=== PATIENT | male | born 1950 | race Caucasian/White ===

== ENCOUNTER 2017-07-14 15:02 | Inpatient (IN) ==
[2017-07-14] MEDS ORDERED: SODIUM CHLORIDE 0.9% 1,000 ML IV STA (15:05)
[2017-07-14] MEDS ORDERED: ONDANSETRON 4 MG/2 ML VIAL IV PRN (15:05)
[2017-07-14] MEDS ORDERED: ASPIRIN 325 MG TABLET PO STA (15:05)
[2017-07-14] MEDS ORDERED: LORazepam 2 MG/1 ML VIAL IV STA (15:18)
[2017-07-14 16:00] LABS: Basophils # 0.1 10*3/uL (0.0-0.2); Basophils % 0.7 % (0.0-0.8); Eosinophils % 0.5 % (0.00-10.9); Hematocrit 48.3 VOL% (42.0-52.0); Hemoglobin 16.2 GM/DL (14.0-18.0); Immature Granulocytes % 0.5 %; Immature Granulocytes Absolute 0.04 #; Lymphocytes # 0.9 10*3/uL (1.4-4.0); Lymphocytes % 9.6 % (21.2-54.2); Mean Corpuscular HGB Conc 33.5 GM/DL (32-36); Mean Corpuscular Hemoglobin 30 PG (27-34); Mean Corpuscular Volume 90.6 FL (87-102); Mean Platelet Volume 10.7 FL (9.6-12.0); Monocytes # 0.5 10*3/uL (0.11-0.8); Monocytes % 5.3 % (1.7-12.7); Neutrophils # 7.4 10*3/uL (1.4-7.4); Neutrophils % 83.4 % (38.7-73.9); Platelet Count 267 T/CUMM (130-400); Red Blood Count 5.33 MC/CUMM (3.8-5.5); Red Cell Distribution Width 12.9 % (9.3-17.3); White Blood Count 8.9 T/CUMM (4-12)
[2017-07-14] MEDS ORDERED: LORazepam 2 MG/1 ML VIAL ONE (16:01)
[2017-07-14] MEDS ORDERED: ASPIRIN 325 MG TABLET ONE (16:01)
[2017-07-14 16:09] LABS: INR 1.1; PT Patient Result 11.8 SECS; Partial Thromboplastin Time 25.9 SECS (0-40)
[2017-07-14 16:31] LABS: Alanine Aminotransferase 22 U/L (16-61); Albumin 3.7 G/DL (3.4-5.0); Alkaline Phosphatase 105 U/L (45-117); Aspartate Amino Transferase 10 U/L (0-37); Blood Urea Nitrogen 29 MG/DL (7-18); Calcium 9.8 MG/DL (8.5-10.1); Glucose 140 MG/DL (74-106); Osmolality,Calculated 280.8 MOS/KG (273-304); Sodium 137 MMOL/L (136-145); Total Protein 7.3 G/DL (6.4-8.3)
[2017-07-14] MEDS ORDERED: LORazepam 2 MG/1 ML VIAL IV PRN ×2 (20:30→20:46)
[2017-07-14] MEDS ORDERED: GLUCAGON 1 MG VIAL IM PRN (20:38)
[2017-07-14] MEDS ORDERED: DEXTROSE 50% 25 GM/50 ML VIAL IV PRN (20:38)
[2017-07-14] MEDS: SODIUM CHLORIDE 0.9% 1,000 ML IV SCH (21:36)
[2017-07-14] MEDS: PANTOPRAZOLE 40 MG VIAL IV SCH (21:41)
[2017-07-14 21:44] LABS: Basophils % 0.6 % (0.0-0.8); Eosinophils # 0.1 10*3/uL (0.0-0.87); Eosinophils % 2.1 % (0.00-10.9); Hematocrit 45.9 VOL% (42.0-52.0); Hemoglobin 15.5 GM/DL (14.0-18.0); Immature Granulocytes % 0.1 %; Immature Granulocytes Absolute 0.01 #; Lymphocytes # 1.2 10*3/uL (1.4-4.0); Lymphocytes % 17.7 % (21.2-54.2); Mean Corpuscular HGB Conc 33.8 GM/DL (32-36); Mean Corpuscular Hemoglobin 31 PG (27-34); Mean Corpuscular Volume 90.4 FL (87-102); Mean Platelet Volume 10.7 FL (9.6-12.0); Monocytes # 0.6 10*3/uL (0.11-0.8); Monocytes % 8.7 % (1.7-12.7); Neutrophils # 4.7 10*3/uL (1.4-7.4); Neutrophils % 70.8 % (38.7-73.9); Platelet Count 244 T/CUMM (130-400); Red Blood Count 5.08 MC/CUMM (3.8-5.5); White Blood Count 6.7 T/CUMM (4-12)
[2017-07-14] MEDS: DEXAMETHASONE 4 MG/1 ML VIAL IV SCH (21:46)
[2017-07-14] MEDS: INSULIN LISPRO 100 UNIT/ML SUBCUT SCH (21:48)
[2017-07-14 22:02] LABS: Calcium 8.8 MG/DL (8.5-10.1); Osmolality,Calculated 279.7 MOS/KG (273-304); Potassium 4.4 MMOL/L (3.5-5.1)
[2017-07-15] MEDS ORDERED: CYCLOBENZAPRINE 10 MG TABLET PO ONE (01:18)
[2017-07-15] MEDS: DEXAMETHASONE 4 MG/1 ML VIAL IV SCH ×4 (03:29→20:40)
[2017-07-15] MEDS: SODIUM CHLORIDE 0.9% 1,000 ML IV SCH ×2 (06:01→20:43)
[2017-07-15] MEDS: NICOTINE 21 MG/24 HR PATCH TRANSDERM SCH (09:28)
[2017-07-15] MEDS: PANTOPRAZOLE 40 MG VIAL IV SCH ×2 (09:30→20:37)
[2017-07-15] MEDS: INSULIN LISPRO 100 UNIT/ML SUBCUT SCH ×4 (09:32→20:36)
[2017-07-15 17:04] LABS: Apearance,Urine CLEAR (Clear); Bilirubin,Urine Negative (Negative); Blood, Urine Moderate mg/dL (Negative); Glucose,Urine (UA) Negative (Negative); Ketones,Urine Negative (Negative); Mucus,Urine Occasional /LPF (Occasional); Nitrite,Urine Negative (Negative); Protein,Urine Negative; RBC,Urine 41 /HPF (0-4); Squamous Epithelial Cell,Urine Occasional /HPF (0-10); Urine Color Yellow (Yellow); Urine Specific Gravity 1.042 (1.001-1.035); Urine Urobilinogen < 2.0 EU/DL (0.2-1.0); WBC,Urine 5 /HPF (0-6)
[2017-07-16] MEDS: DEXAMETHASONE 4 MG/1 ML VIAL IV SCH ×2 (02:33→09:50)
[2017-07-16 06:47] LABS: Calcium 8.4 MG/DL (8.5-10.1); Osmolality,Calculated 283.4 MOS/KG (273-304)
[2017-07-16] MEDS: INSULIN LISPRO 100 UNIT/ML SUBCUT SCH ×4 (08:08→20:42)
[2017-07-16] MEDS: PANTOPRAZOLE 40 MG VIAL IV SCH (09:50)
[2017-07-16] MEDS: NICOTINE 21 MG/24 HR PATCH TRANSDERM SCH (09:55)
[2017-07-16] MEDS: DEXAMETHASONE 4 MG TABLET PO SCH ×2 (16:15→20:41)
[2017-07-17] MEDS: INSULIN LISPRO 100 UNIT/ML SUBCUT SCH ×4 (07:20→22:17)
[2017-07-17] MEDS: DEXAMETHASONE 4 MG TABLET PO SCH ×3 (11:17→20:24)
[2017-07-17] MEDS: PANTOPRAZOLE 40 MG TABLET PO SCH (11:17)
[2017-07-17] MEDS: NICOTINE 21 MG/24 HR PATCH TRANSDERM SCH (11:18)
[2017-07-18] MEDS: INSULIN LISPRO 100 UNIT/ML SUBCUT SCH (07:50)
[2017-07-18] MEDS: PANTOPRAZOLE 40 MG TABLET PO SCH (08:41)
[2017-07-18] MEDS: DEXAMETHASONE 4 MG TABLET PO SCH ×4 (08:41→23:17)
[2017-07-18] MEDS: NICOTINE 21 MG/24 HR PATCH TRANSDERM SCH (08:42)
[2017-07-18] MEDS: ALBUTEROL/IPRATROPIUM 3 ML NEB RESP TX PRN (16:25)
[2017-07-19 05:22] LABS: Basophils % 0.1 % (0.0-0.8); Hematocrit 38.7 VOL% (42.0-52.0); Hemoglobin 13.9 GM/DL (14.0-18.0); Immature Granulocytes % 0.6 %; Immature Granulocytes Absolute 0.05 #; Lymphocytes # 0.5 10*3/uL (1.4-4.0); Lymphocytes % 6.2 % (21.2-54.2); Mean Corpuscular HGB Conc 35.9 GM/DL (32-36); Mean Corpuscular Hemoglobin 31 PG (27-34); Mean Corpuscular Volume 87.6 FL (87-102); Mean Platelet Volume 11.2 FL (9.6-12.0); Monocytes # 0.2 10*3/uL (0.11-0.8); Neutrophils # 7.3 10*3/uL (1.4-7.4); Neutrophils % 90.1 % (38.7-73.9); Platelet Count 252 T/CUMM (130-400); Red Blood Count 4.42 MC/CUMM (3.8-5.5); White Blood Count 8.1 T/CUMM (4-12)
[2017-07-19 05:57] LABS: Calcium 8.5 MG/DL (8.5-10.1); Osmolality,Calculated 286.3 MOS/KG (273-304); Potassium 4.1 MMOL/L (3.5-5.1)
[2017-07-19] MEDS: NICOTINE 21 MG/24 HR PATCH TRANSDERM SCH (09:21)
[2017-07-19] MEDS: DEXAMETHASONE 4 MG TABLET PO SCH (09:21)
[2017-07-19] MEDS: PANTOPRAZOLE 40 MG TABLET PO SCH (09:21)
[2017-07-19] MEDS: ALBUTEROL/IPRATROPIUM 3 ML NEB RESP TX PRN (09:40)
[2017-07-19] MEDS ORDERED: TUBERCULIN SKIN TEST 0.1 ML SYRINGE INTRADERM ONE (10:30)
[2017-07-19 14:28] VITALS: BP 116/77
== END 2017-07-19 15:07 | disposition swing bed (61) | DRG 54 ==
LOC: EDBD → EDUNIT# → N.ED 15:02 → SUATTDRO 20:27 → N.EDINP 21:06 → N.4E 21:11
PROVIDERS: ADMIT Internal Medicine; ATTEND Internal Medicine

== ENCOUNTER 2017-11-06 19:20 | Inpatient (IN) ==
[2017-11-06] MEDS ORDERED: SODIUM CHLORIDE 0.9% 1,000 ML IV STA (22:58)
[2017-11-07 00:46] LABS: Basophils # 0.1 10*3/uL (0.0-0.2); Basophils % 0.7 % (0.0-0.8); Eosinophils # 0.2 10*3/uL (0.0-0.87); Eosinophils % 2.5 % (0.00-10.9); Hematocrit 42.4 VOL% (42.0-52.0); Hemoglobin 14.7 GM/DL (14.0-18.0); Immature Granulocytes % 0.4 %; Immature Granulocytes Absolute 0.03 #; Lymphocytes # 1.6 10*3/uL (1.4-4.0); Lymphocytes % 22.3 % (21.2-54.2); Mean Corpuscular HGB Conc 34.7 GM/DL (32-36); Mean Corpuscular Hemoglobin 33 PG (27-34); Mean Corpuscular Volume 93.8 FL (87-102); Mean Platelet Volume 11.1 FL (9.6-12.0); Monocytes # 0.6 10*3/uL (0.11-0.8); Monocytes % 8.8 % (1.7-12.7); Neutrophils # 4.7 10*3/uL (1.4-7.4); Neutrophils % 65.3 % (38.7-73.9); Platelet Count 229 T/CUMM (130-400); Red Blood Count 4.52 MC/CUMM (3.8-5.5); Red Cell Distribution Width 12.9 % (9.3-17.3); White Blood Count 7.1 T/CUMM (4-12)
[2017-11-07 00:51] LABS: Calcium 9.4 MG/DL (8.5-10.1); Osmolality,Calculated 278.4 MOS/KG (273-304); Potassium 4.3 MMOL/L (3.5-5.1)
[2017-11-07 01:01] LABS: Apearance,Urine CLEAR (Clear); Bacteria,Urine Occasional /HPF (Few); Bilirubin,Urine Negative (Negative); Blood, Urine Moderate mg/dL (Negative); Glucose,Urine (UA) Negative (Negative); Hyaline Casts,Urine 15 /LPF (0-3); Ketones,Urine Negative (Negative); Mucus,Urine Occasional /LPF (Occasional); Nitrite,Urine Negative (Negative); Protein,Urine Negative; RBC,Urine 2 /HPF (0-4); Squamous Epithelial Cell,Urine Occasional /HPF (0-10); Urine Color Yellow (Yellow); Urine Specific Gravity 1.014 (1.001-1.035); Urine Urobilinogen < 2.0 EU/DL (0.2-1.0); WBC,Urine 3 /HPF (0-6)
[2017-11-07] MEDS ORDERED: ALBUTEROL/IPRATROPIUM 3 ML NEB RESP TX PRN (01:12)
[2017-11-07] MEDS: DEXTROSE 5% NACL 0.45% 1,000 ML IV SCH ×3 (03:37→20:13)
[2017-11-07 05:01] LABS: Basophils % 0.9 % (0.0-0.8); Eosinophils # 0.2 10*3/uL (0.0-0.87); Eosinophils % 3.7 % (0.00-10.9); Hematocrit 34.4 VOL% (42.0-52.0); Immature Granulocytes % 0.4 %; Immature Granulocytes Absolute 0.02 #; Lymphocytes # 1.1 10*3/uL (1.4-4.0); Lymphocytes % 24.3 % (21.2-54.2); Mean Corpuscular HGB Conc 30.8 GM/DL (32-36); Mean Corpuscular Hemoglobin 31 PG (27-34); Mean Corpuscular Volume 101.2 FL (87-102); Mean Platelet Volume 10.4 FL (9.6-12.0); Monocytes # 0.4 10*3/uL (0.11-0.8); Monocytes % 9.4 % (1.7-12.7); Neutrophils # 2.8 10*3/uL (1.4-7.4); Neutrophils % 61.3 % (38.7-73.9); Platelet Count 160 T/CUMM (130-400); Red Cell Distribution Width 12.9 % (9.3-17.3); White Blood Count 4.6 T/CUMM (4-12)
[2017-11-07 05:14] LABS: Hemoglobin 10.6 GM/DL (14.0-18.0)
[2017-11-07 05:38] LABS: Albumin 2.6 G/DL (3.4-5.0); Bilirubin,Total 0.7 MG/DL (0.2-1.0); Calcium 8.1 MG/DL (8.5-10.1); Total Protein 5.6 G/DL (6.4-8.3)
[2017-11-07 05:39] LABS: Osmolality,Calculated 286.3 MOS/KG (273-304); Potassium 3.8 MMOL/L (3.5-5.1)
[2017-11-07] MEDS ORDERED: DEXAMETHASONE 10 MG/1 ML VIAL IV ONE (07:28)
[2017-11-07] MEDS ORDERED: DEXAMETHASONE INJ 40 MG in SODIUM CHLORIDE 0.9% 50 ML IV ONE (08:00)
[2017-11-08] MEDS: DEXTROSE 5% NACL 0.45% 1,000 ML IV SCH ×2 (04:16→14:48)
[2017-11-08] MEDS ORDERED: DEXAMETHASONE INJ 40 MG in SODIUM CHLORIDE 0.9% 50 ML IV ONE (09:00)
[2017-11-08] MEDS ORDERED: DEXAMETHASONE 10 MG/1 ML VIAL IV ONE (09:00)
[2017-11-08] MEDS: DEXAMETHASONE 4 MG TABLET PO SCH ×3 (09:22→21:14)
[2017-11-08] MEDS ORDERED: TUBERCULIN SKIN TEST 0.1 ML SYRINGE INTRADERM ONE (12:00)
[2017-11-09] MEDS: DEXTROSE 5% NACL 0.45% 1,000 ML IV SCH ×4 (03:26→22:13)
[2017-11-09] MEDS: DEXAMETHASONE 4 MG TABLET PO SCH ×3 (08:59→20:40)
[2017-11-10] MEDS: DEXTROSE 5% NACL 0.45% 1,000 ML IV SCH ×3 (08:20→23:31)
[2017-11-10] MEDS: DEXAMETHASONE 4 MG TABLET PO SCH ×3 (08:21→20:12)
[2017-11-11] MEDS: DEXTROSE 5% NACL 0.45% 1,000 ML IV SCH (08:04)
[2017-11-11] MEDS: DEXAMETHASONE 4 MG TABLET PO SCH (08:04)
[2017-11-11] MEDS ORDERED: PANTOPRAZOLE 40 MG VIAL IV SCH (09:00)
[2017-11-11 12:11] VITALS: BP 113/69
== END 2017-11-11 14:15 | DRG 54 ==
LOC: N.ED 19:20 → SUATTDRO 11-07 00:58 → N.EDINP 11-07 00:58 → N.4E 11-07 02:45
PROVIDERS: ADMIT Internal Medicine Cardiovascular Disease; ATTEND Internal Medicine